=== PATIENT | female | born 1965 | race Caucasian/White ===

== ENCOUNTER → 2016-06-10 | Outpatient (CLI) | payer OTHER ==
[~2016-06-10] MED LIST: ASPEC325 PO; CALC500C70 PO; CARB200T PO; CRS/10 PO; FLUO20CA35 PO; FLUO40CA8 PO; FURO-85 PO; HYDR200T5 PO; LEVO100T7 PO; MULT-506 PO; OMEP40CA PO; OMEP40CA41 PO; OXYC-57 PO; POTA10CA28 PO; PREG1CAP28 PO; PREG1CAP70 PO; [UNRECOGNIZED DRUG - OTHER] PO
--- NOTE | 2016-06-10 13:35 | MAMMOGRAPHY REPORT ---
UNILATERAL LEFT DIGITAL DIAGNOSTIC MAMMOGRAM TOMOSYNTHESIS WITH CAD: 06/10/2016 CLINICAL HISTORY: 51-year-old woman presents to establish new baseline after a surgical excisional b iopsy in the left upper outer quadrant yielded a radial scar. Patient also has a history of benign stereotactic biopsy in the upper outer quadrant of the left breast. TECHNIQUE: Left breast tomosynthesis in addition to standard 2D mammography was performed. Current evelyn xiong was also evaluated with a Computer Aided Detection (CAD) system. COMPARISON: Comparison is made to exams dated: 12/02/2015 specimen, 12/02/2015 localization, 6 stereotactic biopsy, 10/31/2015 mammogram, 10/16/2015 ultrasound, and 10/03/2015 mammogram - [facility]. BREAST COMPOSITION: The tissue of the left breast is heterogeneously dense, which may obscure small masses. FINDINGS: There is expected architectural distortion in the upper outer posterior left breast, at th e site of prior surgical excisional biopsy which yielded a radial scar. This pathology result was c onsidered concordant with the imaging appearance of a focal area of architectural distortion. There is a stable dumbbell-shaped metallic biopsy marker in the upper outer middle one third of the left breast. No new suspicious mass, architectural distortion or cluster of microcalcifications is seen. IMPRESSION: ACR BI-RADS CATEGORY 2: BENIGN Expected architectural distortion from prior benign surgical excisional biopsy in the upper outer po sterior left breast, and stable post biopsy changes also in the upper outer middle one third of the left breast. There is no mammographic evidence of malignancy. Return to annual mammogram screening schedule is recommended. The patient has been verbally notified of the results. Approximately 10% of breast cancers are not detected with mammography. A negative mammographic repor t should not delay biopsy if a clinically suggestive mass is present. Dorothy Varela M.D. ay/:06/10/2016 09:19:35 Patent Law Specialist: Elana SALEEM)(Yoav), [facility] letter sent: Normal 1/2 BI-RADS Code: ACR BI-RADS Category 2: Benign
== END | disposition home or self-care (01) ==
LOC: C.MAMM 08:09
PROVIDERS: ATTEND Surgery
DX: R92.8 Other abnormal and inconclusive findings on diagnostic imaging of breast (principal)

== ENCOUNTER 2016-11-06 19:22 | Inpatient (IN) | payer OTHER ==
[~2016-11-06] VITALS: Ht 172.7 cm; Wt 118.0 kg
[~2016-11-06 19:22] MED LIST changes: -ASPEC325 PO; -CARB200T PO; -FLUO20CA35 PO; -OMEP40CA41 PO; -OXYC-57 PO; -PREG1CAP28 PO; -PREG1CAP70 PO
[2016-11-06] MEDS ORDERED: ONDANSETRON INJ 2 MG/ML 2 ML VIAL IV STA (19:42)
[2016-11-06] MEDS ORDERED: MoRPHine SULFATE 4 MG/ML 1 ML CARP\\VIAL IV STA (19:42)
[2016-11-06 20:02] LABS: MEAN CORPUSCULAR HGB CONC 33.7 g/dl (32-36); PLATELET COUNT 229 K/uL (130-400)
[2016-11-06 20:17] LABS: BUN/CREATININE RATIO 16.5 (10-20); CREATININE 1.1 mg/dl (0.60-1.20); POTASSIUM 3.6 mmol/L (3.5-5.1)
[2016-11-06 20:29] LABS: HEMATOCRIT 39.2 % (37-47); MEAN CELL VOLUME 87.7 fL (80-100); MEAN CORPUSCULAR HEMOGLOBIN 29.5 pg (25-34); RED BLOOD COUNT 4.47 M/uL (4.2-5.4); WHITE BLOOD COUNT 10.18 K/uL (4.8-10.8)
[2016-11-06 20:31] LABS: BASO ABS # 0.09 K/uL (0-0.2); BASOPHIL % 0.9 %; COMPLETE YES; EOSINOPHIL % 2.6 %; LYMPH ABS # 2.57 K/uL (1.2-3.4); LYMPHOCYTE % 25.2 %; NEUTROPHILS % 52.2 %; VARIANT LYM ABS # 1.51 K/uL; VARIANT LYMPHOCYTE % 14.8 %
--- NOTE | 2016-11-06 20:40 | EMERGENCY ROOM VISIT NOTE ---
History First contact with patient: 19:32 Chief Complaint: LEG PAIN,LEG INJURY Stated Complaint: POSSIBLE BROKEN RT LEG History of Present Illness The patient is a 51 year old female who presents to the Emergency Room with complaints of right leg injury. The patient states that she was walking up concrete steps. She states that she tripped and fell over the concrete steps and rolled down an embankment. She injured her right ankle. She has not been able to walk on it. She states that it felt unstable. She reports abrasions to the foot. She rates the discomfort a 10/10. The patient denies any other injury. She denies striking her head or having loss of consciousness. She denies any arm pain. The patient does not have an orthopedist. Review of Systems A 10 system review of systems was completed with positives and pertinent negatives listed in the HPI. Past Medical/Surgical History Medical Problems: (1) GERD (gastroesophageal reflux disease) (2) Hyperlipidemia (3) Hypothyroid Social History Smoking Status: Never Smoker Housing Status: lives with family Current/Historical Medications Scheduled Calcium/Vitamin D (Os-Erik 500 Plus D), 1 TAB PO QAM Fluoxetine (Prozac), 40 MG PO QAM Furosemide (Lasix), 20 MG PO QAM Hydroxychloroquine Sulfate (Plaquenil), 200 MG PO BID Levothyroxine Sodium (Levothyroxine Sodium), 1 TAB PO QAM Multivitamin (Multivitamin), 1 TAB PO QAM Omeprazole (Prilosec), 40 MG PO QAM Potassium Chloride (Micro-K Ext Rel), 10 MEQ PO QAM Rosuvastatin Calcium (Crestor), 10 MG PO HS [Estradal], 1 MG PO QAM Physical Exam Vital Signs Date Time Temp Pulse Resp B/P (MAP) Pulse Ox O2 Delivery O2 Flow Rate FiO2 11/06/16 21:05 66 18 107/68 98 Room Air 11/06/16 19:28 36.5 64 18 108/70 92 Room Air Physical Exam VITALS: Vitals are noted on the nurse's note and reviewed by myself. Vital signs stable. GENERAL: This is a 51-year-old female who appears pale and uncomfortable from pain,nondiaphoretic, well-developed well-nourished. SKIN: There is abrasion noted to the right anterior ankle, right foot with minimal bleeding. There is no significant gaping. It does not appear to be open to the bone. There is no tenting of the skin. Capillary reflex less than 2 seconds. HEAD: Normocephalic atraumatic. EARS: The external ears are normal in appearance. EYES: Pupils equal round and reactive to light and accommodation. Conjunctivae without injection, sclerae without icterus. Extraocular movements intact. NOSE: Patent, turbinates without inflammation or discharge. MOUTH: Mucous membranes moist. Tonsils are not enlarged. Pharynx without erythema or exudate. Uvula midline. Airway patent. Tongue does not deviate. NECK: Supple without nuchal rigidity. Cervical spine is nontender. No JVD. HEART: Regular rate and rhythm without murmurs gallops or rubs. LUNGS: Clear to auscultation bilaterally without wheezes, rales or rhonchi. No retractions or accessory muscle use. MUSCULOSKELETAL: Marked edema and tenderness to the right lateral malleolus and diffusely over the ankle. There is no significant proximal tib-fib tenderness. There is mild tenderness to palpation over the right fifth metatarsal. There are superficial abrasions. There is no gaping laceration. I do not suspect that this is an open injury to the bone. The remaining extremities are unremarkable. NEURO: Patient was alert and oriented to person place and time. Normal sensation to light and sharp touch. Deep tendon reflexes 2+ throughout. No focal neurological deficits. Medical Decision & Procedures ER Provider Diagnostic Interpretation: RIGHT ANKLE 2 VIEWS CLINICAL HISTORY: Right ankle pain status post trauma COMPARISON: None. DISCUSSION: There is an oblique fracture of the distal fibula. There is a transverse fracture medial malleolus. There is a fracture of the posterior malleolus. There is disruption of the ankle mortise with lateral translation the talus with respect to the tibia. There is calcaneal spurring. IMPRESSION: Acute fractures of the distal fibula, medial malleolus, and posterior malleolus. Disruption of the ankle mortise. Laboratory Results 11/06/16 19:48 Red Blood Count 4.47, Mean Corpuscular Volume 87.7, Mean Corpuscular Hemoglobin 29.5, Mean Corpuscular Hemoglobin Concent 33.7, Mean Platelet Volume 10.0 11/06/16 19:48 Test 11/06/16 19:48 White Blood Count 10.18 K/uL (4.8-10.8) Red Blood Count 4.47 M/uL (4.2-5.4) Hemoglobin 13.2 g/dL (12.0-16.0) Hematocrit 39.2 % (37-47) Mean Corpuscular Volume 87.7 fL (80-100) Mean Corpuscular Hemoglobin 29.5 pg (25-34) Mean Corpuscular Hemoglobin Concent 33.7 g/dl (32-36) Platelet Count 229 K/uL (130-400) Mean Platelet Volume 10.0 fL (7.4-10.4) RDW Standard Deviation 44.6 fL (36.4-46.3) RDW Coefficient of Variation 13.9 % (11.5-14.5) Neutrophils % (Manual) 52.2 % Lymphocytes % (Manual) 25.2 % Variant Lymphocytes % (manual) 14.8 % Monocytes % (Manual) 4.3 % Eosinophils % (Manual) 2.6 % Basophils % (Manual) 0.9 % Neutrophils # (Manual) 5.31 K/uL (1.4-6.5) Total Absolute Neutrophils 5.31 K/uL (1.4-6.5) Lymphocytes # (Manual) 2.57 K/uL (1.2-3.4) Absolute Variant Lymphocytes 1.51 K/uL Total Absolute Lymphocytes 4.07 K/uL (1.2-3.4) Monocytes # (Manual) 0.44 K/uL (0.11-0.59) Eosinophils # (Manual) 0.26 K/uL (0-0.5) Basophils # (Manual) 0.09 K/uL (0-0.2) Red Blood Cell Morphology Unremarkable Anion Gap 8.0 mmol/L (3-11) Est Creatinine Clear Calc Drug Dose 80.8 ml/min Estimated GFR () 66.8 Estimated GFR (Non- 57.7 BUN/Creatinine Ratio 16.5 (10-20) Calcium Level 9.0 mg/dl (8.5-10.1) Medications Administered Medications (Trade) Dose Ordered Sig/Della Route Start Time Stop Time Status Last Admin Dose Admin Ondansetron HCl (Zofran Inj) 4 mg NOW STAT IV 11/06/16 19:42 11/06/16 19:44 DC 11/06/16 20:02 4 MG Morphine Sulfate (MoRPHine SULFATE INJ) 4 mg NOW STAT IV 11/06/16 19:42 11/06/16 19:44 DC 11/06/16 20:03 4 MG ED Course The patient was seen and examined. Previous visits were reviewed. Imaging was obtained as above. The patient appears to have an unstable trimalleolar fracture. There is no obvious dislocation. When I reevaluated the patient, she stated she noticed she was developing some bruising to the left forearm. She does not have any significant tenderness in this area or particularly over the elbow, wrist or shoulder. The patient requested to see Dr. Manzanares's group. Dr. Manzanares was contacted. He will evaluate the patient in the ED. The patient was given 4mg IV morphine and 4 mg IV Zofran with good improvement in her pain. The case was discussed with Dr. Newton who agrees with the assessment and treatment plan. Medical Decision The differential diagnosis includes fracture, sprain, contusion, abrasion, among others Medication Reconcilliation Current Medication List: was personally reviewed by me Blood Pressure Screening Patient's blood pressure: Elevated blood pressure Blood pressure disposition: Elevated BP felt to be situational Impression Primary Impression: Trimalleolar fracture of ankle, closed Departure Information Dispostion Admitted as an inpatient Referrals Ronnell Stubbs Jr,D.O. (PCP) Patient Instructions My [facility]
--- NOTE | 2016-11-06 20:57 | DIAGNOSTIC IMAGING REPORT ---
RIGHT TIBIA/FIBULA 2 VIEWS ROUTINE CLINICAL HISTORY: Right lower leg pain status post trauma COMPARISON: None. DISCUSSION: There is a comminuted oblique fracture of the distal fibula 9.5 cm proximal to the fibular tip. There is a transverse fracture of the medial malleolus. There is a posterior malleolar fracture. There is disruption of the ankle mortise. No proximal tibia or fibular fractures are visualized. IMPRESSION: Fractures of the posterior malleolus, medial malleolus, and distal fibula. Disruption of the ankle mortise. Electronically signed by: Leonardo Pop M.D. 11/06/2016 8:55 PM Dictated Date/Time: 11/06/2016 8:54 PM
--- NOTE | 2016-11-06 20:58 | DIAGNOSTIC IMAGING REPORT ---
RIGHT ANKLE 2 VIEWS CLINICAL HISTORY: Right ankle pain status post trauma COMPARISON: None. DISCUSSION: There is an oblique fracture of the distal fibula. There is a transverse fracture medial malleolus. There is a fracture of the posterior malleolus. There is disruption of the ankle mortise with lateral translation the talus with respect to the tibia. There is calcaneal spurring. IMPRESSION: Acute fractures of the distal fibula, medial malleolus, and posterior malleolus. Disruption of the ankle mortise. Electronically signed by: Leonardo Pop M.D. 11/06/2016 8:56 PM Dictated Date/Time: 11/06/2016 8:56 PM
--- NOTE | 2016-11-06 20:59 | DIAGNOSTIC IMAGING REPORT ---
RIGHT FOOT MIN 3 VIEWS ROUTINE CLINICAL HISTORY: Right foot pain status post trauma COMPARISON: None. DISCUSSION: There is disruption of the ankle mortise. There is a medial malleolar fracture. There is a fracture the posterior malleolus. There is calcaneal spurring. IMPRESSION: Acute fractures of the medial malleolus and posterior malleolus the distal tibia. Disruption of the ankle mortise. Electronically signed by: Leonardo Pop M.D. 11/06/2016 8:57 PM Dictated Date/Time: 11/06/2016 8:57 PM
[2016-11-06] MEDS ORDERED: MoRPHine SULFATE 4 MG/ML 1 ML CARP\\VIAL IV ONE (21:25)
[2016-11-06] MEDS ORDERED: PREG1CAP28 PO ×2 (21:34)
[2016-11-06] MEDS ORDERED: PREG1CAP70 PO (21:34)
[2016-11-06] MEDS ORDERED: CARB200T PO (21:34)
[2016-11-06] MEDS ORDERED: OMEP40CA41 PO (21:35)
[2016-11-06] MEDS ORDERED: FLUO20CA35 PO (21:35)
[2016-11-06] MEDS ORDERED: NURSING VERBAL MED ORDER ONE (21:45)
[2016-11-06] MEDS ORDERED: D5W AND 1/2NSS 1,000 ML IV SCH (22:03)
[2016-11-06] MEDS ORDERED: MAGNESIUM HYDROXIDE SUSP 30 ML UDC PO PRN (22:15)
[2016-11-06] MEDS ORDERED: OXYCODONE/ACETAMINOPHEN 5-325 TAB PO PRN (22:15)
[2016-11-06 22:45] VITALS: BP 134/83; PULSE 82; TEMP 36.8; O2SAT 97
[2016-11-06 23:29] LABS: PROTHROMBIN TIME (PATIENT) 11.1 SECONDS (9.0-12.0)
[2016-11-06 23:45] VITALS: BP 134/83; PULSE 82; TEMP 36.8; O2SAT 98; Ht 172.7 cm; Wt 118.0 kg
[2016-11-07] VITALS (8 sets, daily range): BP systolic 114–135; BP diastolic 69–82; PULSE 18–88; TEMP 36.9–37.2; O2SAT 92–97
[2016-11-07] MEDS ORDERED: NURSING VERBAL MED ORDER ONE (00:30)
[2016-11-07] MEDS: MoRPHine SULFATE 2 MG/ML CARP IV PRN ×2 (01:44→06:21)
[2016-11-07] MEDS ORDERED: LEVOTHYROXINE 100 MCG TAB PO SCH (06:00)
[2016-11-07] MEDS ORDERED: CLINDAMYCIN IV 900 MG in DEXTROSE 5% 100ML 100 ML IV SCH (06:00)
--- NOTE | 2016-11-07 07:15 | HISTORY & PHYSICAL EXAMINATION ---
DATE OF ADMISSION: 11/06/2016 CHIEF COMPLAINT: Right ankle injury. 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 She was apparently coming home from work and was going up some steps carrying some things when she slipped and twisted her ankle. Acute onset of pain. She did scrape her foot up quite a bit. She was brought into the Emergency Room and x-rays revealed an ankle fracture. We were consulted for treatment. No other injuries. No preexisting ankle pain. Last food was lunch. PAST MEDICAL HISTORY: Significant for: 1. Inflammatory arthritis, on methotrexate. 2. Hypothyroidism. 3. Gastroesophageal reflux disease. 4. Trigeminal neuralgia. PREVIOUS SURGERIES: Include: 1. Cholecystectomy. 2. Hysterectomy. 3. Breast biopsy. ALLERGIES: TO PENICILLIN, KEFLEX WHICH CAUSED A RASH. CURRENT MEDICINES: Include: 1. Levothyroxine. 2. Plaquenil. 3. Omeprazole. 4. Crestor. 5. Calcium. 6. Tegretol for trigeminal neuralgia. SOCIAL HISTORY: This is a 51-year-old female. She is . Two kids. Works as a nurse. Does not smoke. FAMILY HISTORY: Noncontributory. REVIEW OF SYSTEMS: Negative for diabetes, neurologic problems, vascular problems, bleeding disorders. Denies any chest pain or shortness of breath. No history of DVT or PE. PHYSICAL EXAMINATION: GENERAL: Reveals a pleasant middle-aged female. She is lying in bed, looks reasonably comfortable. HEENT: Benign. NECK: Supple. No lymphadenopathy. LUNGS: Clear to auscultation. HEART: Regular rate and rhythm. ABDOMEN: Soft, nontender, nondistended. EXTREMITIES: Grossly neurovascularly intact except as follows: Examination of the right lower leg and ankle reveals her foot to be slightly externally rotated. There is abrasion over medial malleolus area, but it is a superficial abrasion, no significant bleeding, and no signs of an open fracture. She does have an abrasion over the MTP joint as well as the distal portion of the great toe which has bled some and dried. She has got pain with any type of ankle motion or palpation. She has got brisk refill. Good distal pulse. X-RAYS: X-rays of the ankle from the ER were reviewed, show right ankle trimalleolar ankle fracture subluxation. She has got medial, lateral and posterior malleolus fracture. The fibular fracture is slightly comminuted. There is shifting of the mortise. The posterior malleolus fracture looks pretty small. ASSESSMENT: This is a 51-year-old white female with a right trimalleolar ankle fracture subluxation. She has multiple abrasions. No signs of open fracture. PLAN: We talked about treatment. This certainly would benefit from surgery. We talked about splinting and fixing it later next week but she would really like to have it fixed as soon as possible. We are going to admit her to the hospital. I am going to put her in a splint today and reduce her ankle. We will plan on fixing this tomorrow. The risks and benefits of ORIF of right ankle fracture explained to the patient including but not limited to DVT, PE, , infection, neurological injury, vascular injury, bleeding problem, pain, limited range of motion, stiffness, failure to relieve her symptoms, nonunion, malunion, need for further surgery in the future of fracture, symptomatic hardware, etc. The patient understands and desires to proceed. Informed consent was obtained. We may need to place a syndesmosis screw and we may need to take that out at a later date. We will admit her. We will likely give her clindamycin preoperatively due to her ANCEF/KEFLEX ALLERGY. She has an EKG from last November which is normal, from her breast biopsy. We will get some routine labs. We will begin DVT prophylaxis including thigh-high TEDs, SCDs, and aspirin postop. ADAM
[2016-11-07] MEDS ORDERED: MIDAZOLAM HCL 1 MG/ML 2ML VIAL ONE (07:59)
[2016-11-07] MEDS ORDERED: PROPOFOL IV EMULSION 10 MG/ML 20 ML VIAL IV ONE (07:59)
[2016-11-07] MEDS ORDERED: ROCURONIUM BROMIDE 10 MG/ML 5 ML VIAL ONE (07:59)
[2016-11-07] MEDS ORDERED: LIDOCAINE HCL 2% 2 ML VIAL (20MG/ML) ONE (07:59)
[2016-11-07] MEDS ORDERED: FENTANYL CITRATE INJ 50 MCG/1 ML 2 ML VIAL ONE ×2 (08:00→12:21)
[2016-11-07] MEDS ORDERED: ROPIVACAINE 0.5% 5 MG/ML 30 ML VIAL ONE (08:04)
--- NOTE | 2016-11-07 08:14 | History & Physical Bridge Note ---
H&P Re-Evaluation Bridge Note: I have examined the patient, reviewed the History & Physical and in the interval since the performance of the History & Physical I have noted the following changes of clinical significance: No changes noted
[2016-11-07] MEDS ORDERED: HYDROmorphone INJ 1 MG/ML SYR IV PRN (08:30)
[2016-11-07] MEDS ORDERED: ATROPINE SULFATE 0.1 MG/ML 5ML SYR IV PRN (08:30)
[2016-11-07] MEDS ORDERED: ONDANSETRON INJ 2 MG/ML 2 ML VIAL IV PRN ×2 (08:30→11:45)
[2016-11-07] MEDS ORDERED: EpHEDrine SULFATE INJ 50 MG/ML AMP IV PRN (08:30)
[2016-11-07] MEDS ORDERED: MULTIVITAMIN TAB PO SCH (09:00)
[2016-11-07] MEDS ORDERED: NON-FORMULARY MEDICATION (Omeprazole (Prilosec) 40 MG) PO SCH (09:00)
[2016-11-07] MEDS ORDERED: FLUOXETINE HCL 20 MG CAP PO SCH (09:00)
[2016-11-07] MEDS ORDERED: POTASSIUM CHLORIDE 10 MEQ TABCR PO SCH (09:00)
[2016-11-07] MEDS ORDERED: DOCUSATE SODIUM 100 MG CAP PO SCH (09:00)
[2016-11-07] MEDS ORDERED: PANTOprazole SOD 40 MG TAB PO SCH (09:00)
[2016-11-07] MEDS ORDERED: FUROSEMIDE 20 MG TAB PO SCH (09:00)
[2016-11-07] MEDS: CARBAMAZEPINE 200 MG TAB PO SCH ×2 (09:00→14:23)
[2016-11-07] MEDS ORDERED: CALCIUM 600MG + VIT D 400 IU TAB PO SCH (09:00)
[2016-11-07] MEDS ORDERED: PREGABALIN 75 MG CAP PO SCH (09:00)
[2016-11-07] MEDS ORDERED: BUPIVACAINE/EPINEPHRINE 0.5% MPF 1:200,000 10 ML VIAL ONE (09:06)
[2016-11-07] MEDS ORDERED: ASPEC325 PO (09:11)
[2016-11-07] MEDS ORDERED: OXYC-57 PO (09:11)
--- NOTE | 2016-11-07 09:15 | Discharge Instructions ---
Discharge Instructions Date of Service Nov 07, 2016. Admission Reason for Admission: Right Trimalleolar Ankle Fracture Discharge Discharge Diagnosis / Problem: Right Ankle Fracture Discharge Goals Goal(s): Decrease discomfort, Improve function, Improve disease control, Therapeutic intervention Activity Recommendations Activity Limitations: per Instructions/Follow-up section Lifting Limitations: none Exercise/Sports Limitations: none Shower/Bathe: keep incision dry Weightbearing Status: Right non-weightbearing . Instructions / Follow-Up Instructions / Follow-Up Non-weightbearing on right leg for 2 weeks Elevate leg when possible Keep splint and dressing clean, dry, and in place until return clinic visit Keep all pressure of your heel. Return to clinic appointment in 2 weeks. Current Hospital Diet Patient's current hospital diet: Regular Diet Discharge Diet Recommended Diet: Regular Diet Procedures Procedures Performed: ORIF Right Ankle Fracture Pending Studies Studies pending at discharge: no Medical Emergencies . Who to Call and When: Medical Emergencies: If at any time you feel your situation is an emergency, please call 911 immediately. . Non-Emergent Contact Non-Emergency issues call your: Surgeon . "Provider Documentation" section prepared by Wojciech Manzanares. . VTE Core Measure Inpt VTE Proph given/why not?: Other Anticoagulation, T.E.D. Stockings, SCD's
[2016-11-07] MEDS ORDERED: HYDROCORTISONE SOD SUCCINATE 100 MG/2 ML VIAL ONE (09:16)
--- NOTE | 2016-11-07 09:56 | PROGRESS NOTE ---
DATE: 11/07/2016 SUBJECTIVE: This 51-year-old white female admitted last night through the ER with right displaced trimalleolar ankle fracture. She is doing well. Pain is reasonably well controlled. No new complaints. No chest pain or shortness of breath. Not feeling dizzy or lightheaded. OBJECTIVE: VITAL SIGNS: Temperature is 36.9. Vital signs stable. PHYSICAL EXAMINATION: GENERAL: Reveals a pleasant middle-aged female. She is sitting up in bed, looks reasonably comfortable. LUNGS: Clear to auscultation. HEART: Regular rate and rhythm. ABDOMEN: Soft, nontender, nondistended. EXTREMITIES: Grossly neurovascularly intact except as follows: Examination of the right leg reveals a splint to be in place. Leg looks well aligned. She can dorsiflex and plantarflex her foot appropriately. NEUROLOGIC: She is neurologically intact. ASSESSMENT: A 51-year-old white female with right trimalleolar ankle fracture. Planning on taking her to the operating room today. PLAN: We will take her to the operating room today and fix her ankle. She is on DVT prophylaxis including TEDs and SCDs. We will use aspirin postop. She will be nonweightbearing for 2 weeks.
[2016-11-07] MEDS ORDERED: ONDANSETRON INJ 2 MG/ML 2 ML VIAL ONE (09:59)
[2016-11-07] MEDS ORDERED: HYDROmorphone INJ 2 MG/ML SYR/VIAL ONE (10:10)
[2016-11-07] MEDS ORDERED: SODIUM CHLORIDE 0.9% INJ 10 ML VIAL ONE (10:23)
--- NOTE | 2016-11-07 11:27 | DIAGNOSTIC IMAGING REPORT ---
RIGHT ANKLE MIN 3 VIEWS ROUTINE CLINICAL HISTORY: Open reduction internal fixation. COMPARISON STUDY: Right ankle radiographs November 06, 2016. Fluoroscopy time: 17 seconds. FINDINGS: 5 fluoroscopic images demonstrate placement of a fibular plate and screws which fixate the fracture of the right fibula. Fracture alignment appears near anatomic and markedly improved since prior exam. There is also screw and pin fixation of the medial malleolus with near anatomic alignment. Alignment of the ankle mortise now appears anatomic. There are no unexpected radiopaque foreign bodies. IMPRESSION: Expected findings following right ankle internal fixation. Electronically signed by: Keenan Tan M.D. 11/07/2016 11:26 AM Dictated Date/Time: 11/07/2016 11:25 AM
[2016-11-07] MEDS ORDERED: SODIUM CHLORIDE 0.9% 1000ML 1,000 ML IV SCH (11:43)
[2016-11-07] MEDS ORDERED: MoRPHine SULFATE 2 MG/ML CARP IV PRN (11:45)
[2016-11-07] MEDS ORDERED: CLINDAMYCIN 600 MG/54 ML D5W IV ONE (11:45)
[2016-11-07] MEDS ORDERED: OXYCODONE/ACETAMINOPHEN 5-325 TAB PO PRN ×2 (11:45)
[2016-11-07] MEDS: FENTANYL CITRATE INJ 50 MCG/1 ML 2 ML VIAL IV PRN ×4 (12:22→12:37)
[2016-11-07] MEDS ORDERED: METOPROLOL TARTRATE 1 MG/ML VIAL ONE (12:38)
--- NOTE | 2016-11-07 13:30 | Anesthesiology Progress Note ---
Anesthesia Post Op Note Date & Time Nov 07, 2016 at 13:30 Vital Signs Pain Intensity: 0 Vital Signs Past 12 Hours Date Time Temp Pulse Resp B/P (MAP) Pulse Ox O2 Delivery O2 Flow Rate FiO2 11/07/16 13:09 84 15 11/07/16 13:09 84 15 95 11/07/16 13:06 120/73 11/07/16 13:01 127/86 11/07/16 12:59 90 19 96 11/07/16 12:59 90 19 11/07/16 12:56 131/80 11/07/16 12:54 87 14 93 11/07/16 12:54 89 12 95 11/07/16 12:51 130/78 11/07/16 12:46 137/77 11/07/16 12:44 81 15 11/07/16 12:44 79 15 95 11/07/16 12:41 121/86 11/07/16 12:39 99 13 95 11/07/16 12:39 100 14 94 11/07/16 12:36 153/89 11/07/16 12:31 149/79 11/07/16 12:29 99 13 95 11/07/16 12:29 103 14 96 11/07/16 12:26 132/98 11/07/16 12:24 98 13 11/07/16 12:24 98 13 96 11/07/16 12:21 146/85 11/07/16 12:18 106 15 11/07/16 12:18 107 15 97 11/07/16 12:17 144/91 11/07/16 12:16 144/96 11/07/16 12:14 108 16 94 11/07/16 12:14 105 16 96 11/07/16 12:14 36.7 84 18 144/91 (101) 96 Nasal Cannula 2 11/07/16 12:11 155/89 11/07/16 12:09 98 15 90 11/07/16 12:09 99 15 11/07/16 12:06 122/85 11/07/16 12:03 86 15 95 11/07/16 12:03 83 21 94 11/07/16 12:01 138/90 11/07/16 11:56 130/91 11/07/16 11:53 91 17 96 11/07/16 11:53 91 17 11/07/16 11:51 144/84 11/07/16 11:50 144/88 11/07/16 11:49 177/99 11/07/16 11:48 104 17 96 11/07/16 11:48 36.1 99 18 177/125 96 Mask 10 11/07/16 11:48 99 17 96 11/07/16 08:00 Room Air 11/07/16 07:55 36.9 79 18 135/82 (99) 96 Room Air Notes Mental Status: alert / awake / arousable, participated in evaluation Pt Amnestic to Procedure: Yes Nausea / Vomiting: adequately controlled Pain: adequately controlled Airway Patency, RR, SpO2: stable & adequate BP & HR: stable & adequate Hydration State: stable & adequate Anesthetic Complications: no major complications apparent
[2016-11-07] MEDS ORDERED: CLINDAMYCIN IV 600 MG in DEXTROSE 5% ADD-VANTAGE 50ML 50 ML IV SCH (16:00)
[2016-11-07] MEDS ORDERED: ROSUVASTATIN CALCIUM 10 MG TAB PO SCH (21:00)
[2016-11-07] MEDS ORDERED: PREGABALIN 150 MG CAP PO SCH (21:00)
--- NOTE | 2016-11-08 03:20 | OPERATIVE REPORT ---
DATE OF OPERATION: 11/07/2016 SURGEON: Wojciech Manzanares MD BEATER ENGINEER HELPER: SALOMON Stout PREOPERATIVE DIAGNOSIS: Right trimalleolar ankle fracture/subluxation. POSTOPERATIVE DIAGNOSIS: Same. PROCEDURE PERFORMED: Open reduction and internal fixation of right trimalleolar ankle fracture. COMPLICATIONS: None. ESTIMATED BLOOD LOSS: 20 mL. FLUID REPLACEMENT: 1700 mL crystalloid fluid replacement. ANESTHESIA: General. SPECIMENS: None. TOURNIQUET TIME: 79 minutes at 350 mmHg. 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 She was going up in stairs when she injured her ankle. She had acute onset of pain and deformity. She was brought to Emergency Room, where x-rays revealed a right trimalleolar ankle fracture. She then underwent a closed reduction and splinting. The patient elected to proceed with surgical treatment. OPERATIVE IMPLANTS: Operative medial side implants consisted of, 1. A 4.0 partially threaded long threaded cannulated screw with a washer x1. 2. A 1.25-mm K-wire x1. Lateral side implants consisted of, 1. A Synthes 12-hole 1/3 semitubular stainless steel locking plate. 2. A 2.7-mm cortical lag screw x1. 3. A 3.5 fully threaded cortical screws x9. 4. A 4.0 fully threaded cancellous screw x2. OPERATIVE PROCEDURE: The patient was taken to the operating room, identified and placed on the operating table in the supine position. All contact areas were appropriately padded. IV antibiotics were provided by the anesthesia team. A general anesthetic was implemented by the anesthesia team. A right thigh tourniquet was then placed. The right lower extremity splint was then removed. I then scrubbed this leg with Hibiclens. It was then prepped with ChloraPrep and draped in the usual sterile fashion. The right leg was elevated and exsanguinated with Esmarch and tourniquet was placed at 350 mmHg. Attention was first drawn to the medial side. A curvilinear incision was made over the medial malleolus just posterior to this previous abrasion. Sharp dissection was carried through the subcutaneous tissues. We encountered the saphenous vein and this was cauterized as it was right over the fracture site. The fracture was easily visualized. The periosteum was pulled out of the fracture site. I irrigated the fracture and the ankle joint. The fracture was then held in a reduced position with a towel clip and then I placed a K-wire through the central aspect as the piece was not large enough for 2 screws. I then fixed it with a single 4.0 partially threaded cannulated screw with a washer. I then placed an additional 1.25-mm K-wire anterior to this, cut it short, bent it over to provide some rotational control. Attention was then drawn laterally. A direct lateral approach to the fibula was then performed through a longitudinal incision centered over the fracture site. Sharp dissection was carried out through the subcutaneous tissues down to the level of the fascia. The fascia was very carefully incised. The superficial peroneal nerve proximally was identified and protected throughout the case. The fracture was easily visualized. I exposed the fracture site. I debrided the clot. I then reduced it and held it together with some reduction clamps and some K-wires. It was comminuted. I did place a single 2.7-mm cortical lag screw from anterior to posterior to the most proximal part into the butterfly fragment posteriorly to enhance stability. I then reduced the distal part to that proximal portion and held it with a small wire. I did not think these pieces were big enough to hold the screw. I then contoured a 12-hole 1/3 semitubular locking plate to the lateral aspect of the fibula. It was fixed distally with four 3.5 fully threaded cortical screws and then two 4.0 fully threaded cancellous screws. It was fixed proximally with five 3.5 fully threaded cortical screws. X-ray was brought in. The fracture was anatomically aligned. I then stressed the ankle joint and there was no shifting of the mortise at all. I did not feel like I needed to place a syndesmosis screw as a result. Some final x-rays were obtained. I irrigated the wound extensively. I then injected locally with 30 mL of 0.5% Marcaine with epinephrine. The tourniquet was then let down for a final tourniquet time of 79 minutes. Hemostasis was assured with the use of electrocautery. The periosteum of the lateral plate was then repaired with 2-0 Vicryl suture in a [id number] fashion. The subcutaneous tissues of both wounds were then closed with a 2-0 Dexon suture in an interrupted fashion. Skin was then closed with a combination of 3-0 and 4-0 nylon suture. The leg was then cleaned and dried and a sterile dressing composed of Xeroform, 4 x 4, sterile cast padding and a well-padded posterior and stirrup splint were applied. The patient then brought out of general anesthesia and transferred to the recovery room in stable condition. The patient tolerated the procedure well with no complications. All needle and sponge counts were correct at the end of the operation. I attest to the content of the Intraoperative Record and any orders documented therein. Any exceptions are noted below. MTDD
--- NOTE | 2016-11-16 09:09 | Discharge Summary ---
Orthopedic Discharge Summary Admission Date/Reason Nov 06, 2016 at 22:07 Right Trimalleolar Ankle Fracture. Discharge Date/Disposition Nov 07, 2016 Home Diagnosis Principal Diagnosis: RIGHT TRIMALLEOLAR ANKLE FRACTURE Procedure(s) Performed ORIF OF RIGHT TRIMALLEOLAR ANKLE FRACTURE Consultations NONE Medication Reconciliation New Medications: Aspirin (Aspirin) 325 Mg Ectab 1 TAB PO BID for 30 Days, #60 Take to prevent blood clots. Oxycodone/Acetaminophen 5MG/325MG (Percocet 5MG/325MG) Tab 1-2 TAB PO Q6H PRN for Pain for 30 Days, #60 TAB Take as needed for PAIN Continued Medications: Calcium/Vitamin D (Os-Erik 500 Plus D) Tab 1 TAB PO QAM, TAB Carbamazepine (Tegretol) 200 Mg Tab 200 MG PO TID, TAB Fluoxetine (Prozac) 20 Mg Cap 20 MG PO QAM, CAP Furosemide (Lasix) 20 Mg Tab 20 MG PO QAM, TAB Levothyroxine Sodium (Levothyroxine Sodium) 100 Mcg Tab 1 TAB PO QAM for 90 Days, #90 TAB 3 Refills Multivitamin (Multivitamin) Tab 1 TAB PO QAM, TAB Omeprazole (Prilosec) 40 Mg Cap 40 MG PO DAILY, CAP Potassium Chloride (Micro-K Ext Rel) 10 Meq Capcr 10 MEQ PO QAM, CAP Pregabalin (Lyrica) 75 Mg Cap 75 MG PO QAM, CAP Pregabalin (Lyrica) 150 Mg Cap 150 MG PO HS, CAP Pregabalin (Lyrica) 75 Mg Cap 75 MG PO AFTERNOON PRN for , CAP Rosuvastatin Calcium (Crestor) 10 Mg Tab 10 MG PO HS, TAB [Estradal] () 0.5 MG PO QAM Discontinued Medications: Hydroxychloroquine Sulfate (Plaquenil) 200 Mg Tab 200 MG PO BID, TAB Admission Physical Exam As per Admitting History & Physical. Hospital Course PATIENT WAS ADMITTED TO THE HOSPITAL ON 11/06/2016 FOR COMPLAINTS OF RIGHT ANKLE PAIN AFTER A FALL. X-RAYS WERE OBTAINED AND DISCUSSED THAT SHE HAD AN ANKLE FRACTURE. SHE WAS THEN TAKEN TO THE OPERATING ROOM ON 11/07/2016 FOR AN ORIF OF A RIGHT ANKLE TRI-MALLEOLAR ANKLE FRACTURE. ANCEF WAS GIVEN FOR ANTIBIOTIC PROPHYLAXIS. SHE TOLERATED THE PROCEDURE WELL AND THERE WERE NO COMPLICATIONS.. SHE WAS THEN LATER TRANSFERRED TO PACU POST-OPERATIVELY IN STABLE CONDITION. SHE WAS GIVEN PRINTED DISCHARGE INSTRUCTIONS WELL SCRIPTS FOR PAIN MEDICATION AND DISCHARGED HOME. SHE IS TO FOLLOW-UP WITH DR. CROUCH IN THE CLINIC IN 10-14 DAYS POST-OPERATIVELY. SHE CAN CALL THE OFFICE AT [phone] IF SHE HAS ANY CONCERNS. Discharge Instructions Please refer to the electronic Patient Visit Report (Discharge Instructions) for additional information.
== END 2016-11-07 18:00 | disposition home or self-care (01) | DRG 494 ==
LOC: C.EDB 19:23 → C.3E 22:07 → ENRESERV 22:16
PROVIDERS: ADMIT Orthopaedic Surgery Sports Medicine; ATTEND Orthopaedic Surgery Sports Medicine
PROC: 0SSF04Z Reposition Right Ankle Joint with Internal Fixation Device, Open Approach (ICD-10-PCS; principal; 2016-11-07 08:51)
DX: S82.852A Displaced trimalleolar fracture of left lower leg, initial encounter for closed fracture (principal); E03.9 Hypothyroidism, unspecified; M19.90 Unspecified osteoarthritis, unspecified site; W10.8XXA Fall (on) (from) other stairs and steps, initial encounter; K21.9 Gastro-esophageal reflux disease without esophagitis

== ENCOUNTER → 2017-01-06 | Outpatient (CLI) | payer OTHER ==
[~2017-01-06] MED LIST changes: +ASPEC325 PO; +CARB200T PO; +FLUO20CA35 PO; -FLUO40CA8 PO; -HYDR200T5 PO; -OMEP40CA PO; +OMEP40CA41 PO; +OXYC-57 PO; +PREG1CAP28 PO; +PREG1CAP70 PO
--- NOTE | 2017-01-06 15:18 | MAMMOGRAPHY REPORT ---
BILATERAL DIGITAL SCREENING MAMMOGRAM TOMOSYNTHESIS WITH CAD: 01/06/2017 TECHNIQUE: Breast tomosynthesis in addition to standard 2D mammography was performed. Current study was also evaluated with a Computer Aided Detection (CAD) system. COMPARISON: Comparison is made to exams dated: 06/10/2016 mammogram, 12/02/2015 localization, 6 stereotactic biopsy, 10/31/2015 mammogram, 10/03/2015 mammogram, and 08/14/2014 mammogram - [facility]. BREAST COMPOSITION: The tissue of both breasts is heterogeneously dense, which may obscure small mas ses. FINDINGS: No suspicious masses, calcifications, or areas of architectural distortion are noted in ei ther breast. There has been no significant interval change compared to prior exams. There is stable postsurgical architectural distortion in the left upper outer quadrant at the site of prior surgical excision which yielded a radial scar. A biopsy marker clip is again noted in the left upper outer qu adrant. Scattered benign-appearing calcifications are not significantly changed. IMPRESSION: ACR BI-RADS CATEGORY 2: BENIGN There is no mammographic evidence of malignancy. A 1 year screening mammogram is recommended. The pa tient will receive written notification of the results. Approximately 10% of breast cancers are not detected with mammography. A negative mammographic report should not delay biopsy if a clinically suggestive mass is present. Jhoana Jimenez M.D. ah/:01/06/2017 13:19:33 Hoop Coiling Machine Operator: Miesha SALEEM)(Yoav), [facility] letter sent: Normal 1/2 BI-RADS Code: ACR BI-RADS Category 2: Benign
== END | disposition home or self-care (01) ==
LOC: C.MAMM 11:55
PROVIDERS: ATTEND Surgery
DX: Z12.31 Encounter for screening mammogram for malignant neoplasm of breast (principal)

== ENCOUNTER → 2017-08-21 | Outpatient (CLI) | payer OTHER ==
[2017-08-21 09:34] LABS: BASO % 0.5 %; BASO ABS # 0.03 K/uL (0-0.2); EOS % 5.1 %; EOS ABS # 0.28 K/uL (0-0.5); HEMATOCRIT 41.5 % (37-47); HEMOGLOBIN 13.8 g/dL (12.0-16.0); LYMPH % 28.8 %; LYMPH ABS # 1.57 K/uL (1.2-3.4); MEAN CELL VOLUME 83.8 fL (80-100); MEAN CORPUSCULAR HEMOGLOBIN 27.9 pg (25-34); MEAN CORPUSCULAR HGB CONC 33.3 g/dl (32-36); MEAN PLATELET VOLUME 10.4 fL (7.4-10.4); MONO ABS # 0.38 K/uL (0.11-0.59); NEUT % 58.6 %; PLATELET COUNT 223 K/uL (130-400); RED CELL DISTRIBUTION WIDTH CV 14.5 % (11.5-14.5); RED CELL DISTRIBUTION WIDTH SD 44.4 fL (36.4-46.3); WHITE BLOOD COUNT 5.46 K/uL (4.8-10.8)
[2017-08-21 10:04] LABS: BLOOD UREA NITROGEN 25 mg/dl (7-18); CALCIUM 9.2 mg/dl (8.5-10.1); CARBON DIOXIDE 25 mmol/L (21-32); CREATININE 1.02 mg/dl (0.60-1.20); GLUCOSE 89 mg/dl (70-99); POTASSIUM 3.9 mmol/L (3.5-5.1); SODIUM 139 mmol/L (136-145)
[2017-08-21 10:13] LABS: ALT/SGPT 31 U/L (12-78); AST/SGOT 20 U/L (15-37); CHOLESTEROL 220 mg/dl (0-200); LDL CHOLESTEROL CALCULATED 131 mg/dl; TRANSFERRIN 273 mg/dl (200-360)
== END | disposition home or self-care (01) ==
LOC: C.LAB 09:00
DX: M19.90 Unspecified osteoarthritis, unspecified site (principal); E78.5 Hyperlipidemia, unspecified; R60.9 Edema, unspecified; D50.9 Iron deficiency anemia, unspecified